=== PATIENT | female | born 1960 | race Caucasian/White ===

== ENCOUNTER → 2023-07-24 11:11 | Outpatient (CLI) | payer BC, SELFPAY ==
--- NOTE | ~2023-07-24 | XR_ITS ---
Supine and upright views of the abdomen Clinical history: Kidney stone Findings: Bowel gas pattern is nonspecific. Prominent stool noted. No evidence for obstruction or ilene e air. Probable 6 mm distal left ureteral stone noted in the left pelvis, which correlates with findi ngs on CT scan performed earlier today. Osseous structures are intact. Impression: 6 mm distal left ureteral stone, which correlates with CT findings. Constipation. Reviewed, dictated and finalized at [facility]. ET RENOVATOR Impression: 6 mm distal left ureteral stone, which correlates with CT findings. Constipation.
--- NOTE | ~2023-07-24 | CT_ITS ---
EXAMINATION: CT abdomen pelvis wo con DATE: 07/24/2023 11:35 INDICATION: Kidney stones TECHNIQUE: Computed tomography (CT) of the abdomen was performed without intravenous contrast. Automa amber exposure control and iterative reconstruction technique were employed. Exam dose: 499.60 mGy-cm total exam DLP. COMPARISON: July 24, 2023 KUB FINDINGS: The lung bases are clear. Normal heart size. No pericardial or pleural effusion. Approximately 3.5 x 6.4 x 7.8 mm distal left ureteral calculus with severe proximal left hydrouretero nephrosis as a result. Normal urinary tract calculus. No right hydroureteronephrosis. The liver, gallbladder, bile ducts, pancreas, pancreatic duct, spleen and adrenal glands are unremark able. No renal space occupying mass lesion is evident on this limited noncontrast examination. There is extensive abdominal aortic calcification but no abdominal aortic aneurysm. No intraperitonea l or retroperitoneal or pelvic mass lesion or adenopathy or ascites. Normal appendix. The uterus and adnexal areas and urinary bladder are unremarkable. Normal appendix. No bowel obstruction or intraperitoneal free air. Included skeletal structures are unremarkable. IMPRESSION: Approximately 3.5 x 6.4 x 7.8 mm distal left ureteral calculus with severe proximal left hydroureteronephrosis Reviewed, dictated and finalized at [facility]. Reviewed, dictated and finalized at [facility]. WALS SPECIALIST IMPRESSION: Approximately 3.5 x 6.4 x 7.8 mm distal left ureteral calculus wit h severe proximal left hydroureteronephrosis
== END ==
PROVIDERS: PCP Nurse Practitioner; Visit Provider Nurse Practitioner Family
DX: Z87.442 Personal history of urinary calculi (principal); N20.1 Calculus of ureter; K59.00 Constipation, unspecified
CPT/HCPCS: 74018; 74176

== ENCOUNTER 2023-08-03 00:47 | Day surgery (SDC) | payer BC, SELFPAY ==
[2023-08-01 10:21] VITALS: BMI 26.2
--- NOTE | 2023-08-01 10:41 | PC.NURSE ---
Report to the Outpatient Waiting Room, entrance under the green pavilion located off [facility], at time __11:15AM on date __08/03/23_. Planned Procedure Time: __1:15PM . Time changes happen often and if your time is changed the preop area will call you the afternoon before. - You and your visitor will be asked to self-screen and do not enter if you have any COVID symptoms. - A mask is optional within the hospital at this time. Patients may have clear liquids (water, carbonated beverages, clear teas, apple juice) until 3 hours prior to surgery with a maximum of 20 ounces. - No food from midnight until time of surgery. Take the following medications with a SIP of water the morning of surgery: LEVOTHYROXINE DO NOT STOP ANY OF YOUR OTHER PRESCRIPTION MEDICATIONS PRIOR TO SURGERY ?EXCEPT THE FOLLOWING Medications to discontinue per physician ____HOLD ALL VITAMINS/SUPPLEMENTS 3 DAYS PRE-OP- PATIENT STATES TOOK LAST VITAMINS 07/31/23.___ Please no make-up, nail russian, hairspray, perfume, deodorant, or body powder the day of surgery. No jewelry (including any body piercings) or valuables the day of surgery, leave them at home. Please take a shower or bath the night before, or the morning of, surgery with an antibacterial soap. Wear comfortable, loose fitting clothing. - Jewelry must be removed prior to entering the operating room. Rings and piercings that are not removed may be cut off. - The hospital will not accept responsibility for valuables. - Please leave all valuables, including medications, at home the day of surgery. If you are going home after surgery, a licensed power screwdriver operator must drive you home. - NO public transportation without another adult if you receive anesthesia. - We recommend that an adult stay with you for 24 hours following discharge. - We also recommend that you do not drive, make important decision, drink alcoholic beverages, or take any drugs that were not prescribed by your health care provider for at least 24 hours after your discharge time. Follow any additional instructions given to you from your surgeon. If you or anyone in your household have experienced Covid symptoms in the past week, please notify your surgeon or the nurse liaison at the phone number below for possible testing. Telephone instructions given to ____PATIENT and asked if any additional questions and then verbalized understanding. Patient advised to call surgeon office or pre surgery nurse liaison [phone] if any additional questions.
--- NOTE | ~2023-08-03 | XR_ITS ---
EXAMINATION: XR retrograde pyelo w/stent LT DATE: 08/03/2023 13:39 INDICATION: Left ureteral stone. TECHNIQUE: 51 intraoperative fluoroscopic views of the abdomen and pelvis were obtained. I was not pr esent. Fluoroscopy exposure time was 25 seconds. COMPARISON: CT abdomen and pelvis 07/24/2023 FINDINGS: The left-sided retrograde pyelogram demonstrates severe hydronephrosis. The final images de monstrate a left internal ureteral stent in expected position. IMPRESSION: 1. Severe left hydronephrosis. 2. Left internal ureteral stent in expected position. Reviewed, dictated and finalized at [facility]. OR C SOFTWARE ENGINEER
--- NOTE | 2023-08-03 06:23 | WPDHPUPDATE1 ---
History and Physical Update Update Date/Time: 08/03/23 06:23 History and Physical has been reviewed, including an updated exam of the patient. There are NO changes in the patient's condition. Risks, benefits, and alternatives have been discussed and questions answered. Patient agrees to proceed with procedure.
--- NOTE | 2023-08-03 06:24 | WPDHPUPDATE1 ---
History and Physical Update Update Date/Time: 08/03/23 06:24 History and Physical has been reviewed, including an updated exam of the patient. There are NO changes in the patient's condition. Risks, benefits, and alternatives have been discussed and questions answered. Patient agrees to proceed with procedure.
[2023-08-03] MEDS: LACTATED RINGERS 1,000 ML 30 ML IV CONT ×2 (11:30→13:45)
[2023-08-03 12:00] VITALS: BP 142/75; PULSE 76; RESP 16; TEMP 37.1; O2SAT 99
--- NOTE | 2023-08-03 12:53 | P.PNAN_ITS ---
Anes - Initial Pre Proc Eval Procedure: Operation Date: 08/03/23 13:15 Proposed Procedures p Cystoscopy, Left Ureteroscopy, Left Retrograde Pyelogram, Left Stone Extraction, Left Stent Placement, Possible Holmium Laser Lithotripsy, - Adriano Zuluaga MD Date/Time: 08/03/23 12:53 Surgeon: Adriano Zuluaga MD Pre Op Diagnosis: renal stones Patient Data Age: 62 Gender: F Height: 1.7 m Weight: 76.6 kg Last Vital Signs Temp 37.1 C 08/03/23 12:00 Pulse 76 08/03/23 12:00 Resp 16 08/03/23 12:00 BP 142/75 H 08/03/23 12:00 Pulse Ox 99 08/03/23 12:00 O2 Del Method Room Air 08/03/23 12:00 Allergies Allergy/AdvReac Type Severity Reaction Status Date / Time haloperidol Allergy DIFFICULTY Verified 08/03/23 12:11 BREATHING, OVER-SEDATED/UNABLE TO TALK Home Medications Medication Instructions Recorded Confirmed Type Lactobacillus acidophilus 10 10,000 mmu cells PO DAILY 08/01/23 08/01/23 History billion cell capsule (Probiotic) cholecalciferol (vitamin D3) 125 125 mcg PO DAILY 08/01/23 08/01/23 History mcg (5,000 unit) capsule escitalopram oxalate 10 mg tablet 10 mg PO HS 08/01/23 08/01/23 History levothyroxine 100 mcg tablet 100 mcg PO QAM 08/01/23 08/03/23 History vitamin B complex 1 cap PO DAILY 08/01/23 08/01/23 History Patient hx anesthesia problems: none Family hx anesthesia problems: none Results Review: All pre-operative results and documents have been reviewed as part of the pre- operative evaluation. [facility] Social History Social History Smoking packs per day: 1 Smoking cigarettes per day: 20.0 Years smoked: 35 Smoking pack-years: 35.00 Smoking status: Former smoker Tobacco type: cigarettes Smoking end date: 12/11/11 Alcohol intake: current Living arrangements: with family Additional living arrangements comments: [facility] Spiritual care concerns: No Anes - Eval Final PreProcedure Day of Procedure 08/03/23 12:53 Patient weight: overweight Heart: regular rate and rhythm Lungs: decreased breath sounds Airway: Mallampati scale class II Neurological: alert and oriented Last oral intake: >/= 8 hours ASA classification: II Emergent: no Anesthetic plan: proceed Anesthesia type and monitoring: general LMA and standard monitoring Results Review: All pre-operative results and documents have been reviewed as part of the pre- operative evaluation. Informed Consent: The patient's anesthetic plan and its attendant risks and benefits were discussed with the patient/family/POA. Questions were solicited and answers provided to the satisfaction of the patient/family/POA.
[2023-08-03] MEDS: ceFAZolin 2 GM/D5W 50 ML 2 GM/50 ML BAG IVPB (13:03)
--- NOTE | 2023-08-03 13:43 | P.OP_ITS ---
Procedure Note - Detailed Date of Procedure 08/03/23 Pre-op Diagnosis Left ureteral stone Post-op Diagnosis Same Procedure Performed Cystoscopy, left ureteroscopy with laser lithotripsy, stone extraction and stent placement, left retrograde pyelogram Surgeon Adriano Zuluaga MD Anesthesia General Description of Procedure Patient is brought to the operative suite where she is prepped and draped in routine sterile fashion while in dorsal lithotomy position after the uneventful induction of a general LMA anesthetic. Cystoscopy was undertaken with a 19 F rigid cystoscope. There was no intravesical foreign body or neoplasm. Bladder mucosa is normal without hyperemia. She has a single orthotopic ureteral orifice bilaterally. A 0.035 in glidewire was advanced in the left renal pelvis and the distal ureter was dilated with an 8 F 10 F dilator. Ureteroscopy was undertaken with a semi-rigid ureteral scope. Her 7-8 mm left mid ureteral stone is identified. Using the holmium laser ( 273 micron fiber ) we dusted the stone into small particles all of which were removed with a 1.9 F disposable stone ba sket. I placed a 4.8 F variable length ureteral stent with the proximal coil in the left renal pelvis and distal coil in the bladder after performing a left retrograde pyelogram through the ureteral scope to ensure no additional more proximal ureteral stones and to ensure appropriate positioning of the stent. Scopes wires removed the patient was taken recovery room good condition. Drains Yes Packing No Pathology Yes
[2023-08-03 13:45] VITALS: BP 126/62; PULSE 63; RESP 10; TEMP 36.2; O2SAT 100
--- NOTE | 2023-08-03 13:52 | SUR.PHASEI ---
MD Zuluaga at bedside - new orders for RN to give 15mg ketorolac IVP once.
[2023-08-03] MEDS: KETOROLAC 15 MG/ML VIAL (*BKC) IV PUSH (13:56)
[2023-08-03 14:00] VITALS: BP 145/65; PULSE 59; RESP 13; O2SAT 100
[2023-08-03 14:15] VITALS: BP 148/77; PULSE 66; RESP 16; O2SAT 97
[2023-08-03 14:30] VITALS: BP 152/73; PULSE 67; RESP 14; O2SAT 97
[2023-08-03 14:48] VITALS: BP 152/75; PULSE 67; RESP 14; O2SAT 100
== END 2023-08-03 15:11 | disposition home or self-care (01) ==
PROVIDERS: PCP Nurse Practitioner; Visit Provider Urology
PROC: (CPT 52352; principal; 2023-08-03 13:15)
DX: N20.1 Calculus of ureter (principal); Z87.891 Personal history of nicotine dependence; Z87.442 Personal history of urinary calculi; Z80.41 Family history of malignant neoplasm of ovary
CPT/HCPCS: 52356; 74420; 82365; 88300; C1769; C2617; J0690; J1100; J1885; J2405; J2704; J3010; J7120; Q9966

== ENCOUNTER 2023-11-20 08:59 | Outpatient (CLI) | payer BC, SELFPAY ==
--- NOTE | ~2023-11-20 | XR_ITS ---
XR abdomen/kub 1V Ordering provider: Adriano Zuluaga MD History: . Hx of kidney stones . Comparison: July 24, 2023 FINDINGS: BOWEL: Fecal material is loaded in the colon. Nonobstructive bowel gas pattern. ORGANOMEGALY: None. SIGNIFICANT PATHOLOGIC CALCIFICATIONS: None. OTHER: No free air is seen under the diaphragm. IMPRESSION: NO ACUTE ABDOMINAL FINDINGS. Constipation. Reviewed, dictated and finalized at [facility].
== END 2023-11-20 09:00 ==
PROVIDERS: PCP Nurse Practitioner; Visit Provider Urology
DX: Z87.442 Personal history of urinary calculi (principal); K59.00 Constipation, unspecified
CPT/HCPCS: 74018